=== PATIENT | male | born 1990 | race Caucasian/White ===

== ENCOUNTER → 2023-02-11 | Outpatient (CLI) | payer OTHER | LOC: M RAD 07:37 | PROVIDERS: ATTEND Internal Medicine | DX: M77.9 Enthesopathy, unspecified (principal); M50.222 Other cervical disc displacement at C5-C6 level; M25.78 Osteophyte, vertebrae; M94.211 Chondromalacia, right shoulder; M19.011 Primary osteoarthritis, right shoulder; M50.23 Other cervical disc displacement, cervicothoracic region; M51.24 Other intervertebral disc displacement, thoracic region ==